=== PATIENT | male | born 1975 | race African-American/Black ===

== ENCOUNTER 2017-03-17 07:41 | Inpatient (IN) | payer OTHER ==
[2017-03-16 11:22] VITALS: Ht 195.6 cm; Wt 110.0 kg
[2017-03-17] VITALS (20 sets, daily range): BP systolic 108–137; BP diastolic 57–82; PULSE 64–86; RESP 16–26
[~2017-03-17] VITALS: Ht 195.6 cm; Wt 110.0 kg
[~2017-03-17 07:41] MED LIST: SUCCINYLCHOLINE CHLORIDE 100 MG/5 ML SYG IV ONE
[2017-03-17] MEDS ORDERED: CEFAZOLIN 2 GM/50 ML (PMX) 50 ML IVPB SCH (10:00)
[2017-03-17] MEDS ORDERED: LACTATED RINGER'S 1,000 ML IV* SCH (10:00)
[2017-03-17] MEDS ORDERED: MIDAZOLAM 1 MG/ML 2 ML INJ ONE (11:11)
[2017-03-17] MEDS ORDERED: CEFAZOLIN 1 GM INJ ONE (11:11)
[2017-03-17] MEDS ORDERED: ROCURONIUM 50 MG INJ ONE (11:11)
[2017-03-17] MEDS ORDERED: PROPOFOL 100 ML ONE (11:11)
--- NOTE | 2017-03-17 11:47 | HPN ---
Date/Time of Note Date/Time of Note DATE: 03/17/17 TIME: 11:47 Interval H&P Admission Note Pt. seen H&P reviewed: No system changes ESTEFANY LUTZ PA-C March 17, 2017 11:47
[2017-03-17] MEDS ORDERED: ACETAMINOPHEN 325 MG TAB PO PRN (12:00)
[2017-03-17] MEDS ORDERED: ZOLPIDEM 5 MG TAB PO PRN (12:00)
[2017-03-17] MEDS ORDERED: AL HYDROX/MG HYDROX/SIMETH 30 ML CUP PO PRN (12:00)
[2017-03-17] MEDS ORDERED: HYDROmorphONE 1 MG/ML SYG IV PRN (12:00)
[2017-03-17] MEDS ORDERED: CEPASTAT LOZENGE MT PRN (12:00)
[2017-03-17] MEDS ORDERED: CYCLOBENZAPRINE 10 MG TAB PO PRN (12:00)
[2017-03-17] MEDS ORDERED: NALOXONE (0.4 MG/ML) INJ IV PRN (12:00)
[2017-03-17] MEDS ORDERED: CEFAZOLIN 1 GM/50 ML (PMX) 50 ML IVPB SCH (12:00)
[2017-03-17] MEDS ORDERED: BISACODYL 10 MG SUPP PR PRN (12:00)
[2017-03-17] MEDS ORDERED: DIPHENHYDRAMINE 50 MG INJ IV PRN ×2 (12:00→14:30)
[2017-03-17] MEDS ORDERED: HYDROmorphONE 0.2 MG/ML PCA IV SCH (12:00)
[2017-03-17] MEDS ORDERED: THROMBIN 5000 UNIT VIAL ONE (12:24)
[2017-03-17] MEDS ORDERED: CA CHLORIDE 10% 10 ML SYRINGE ONE (12:24)
[2017-03-17] MEDS ORDERED: POLYMYXIN/BACITRACIN 1L IRRIG ONE (12:24)
[2017-03-17] MEDS ORDERED: SURGIFOAM POWDER 1 GM KIT ONE (12:24)
[2017-03-17] MEDS ORDERED: BUPIVACAINE 0.25%/EPI (SDV) 30 ML INJ ONE (12:24)
[2017-03-17] MEDS ORDERED: METOCLOPRAMIDE 10 MG INJ ONE (13:07)
[2017-03-17] MEDS ORDERED: FAMOTIDINE 20 MG INJ ONE (13:07)
[2017-03-17] MEDS ORDERED: ONDANSETRON 4 MG INJ ONE (13:07)
[2017-03-17] MEDS ORDERED: DEXAMETHASONE 4 MG/ML 1 ML INJ ONE (13:07)
[2017-03-17] MEDS ORDERED: ACETAMINOPHEN 1000MG/100ML IV 100 ML ONE (13:42)
--- NOTE | 2017-03-17 14:03 | RADRPT ---
PROCEDURE: Intraoperative XR. CLINICAL INDICATION: Intraoperative radiograph during L4-5 microdiskectomy. TECHNIQUE: Spot intraoperative lateral lumbar x-ray image was provided. The images were reviewed on a high-resolution PACS workstation. COMPARISON: None available FINDINGS: Spot intraoperative lateral lumbar view were provided during L4-5 microdiskectomy. The images demon strate metallic probes at the level of L4 and L5. IMPRESSION: 1. Spot intraoperative lateral lumbar view during L4-5 microdiskectomy were provided. 2. Please see operative report of the same day for further information. RPTAT: DD .Landon Hoff MD, Date Time Electronically viewed and signed by .Landon Hoff MD, on 03/17/2017 14:03 .S/
--- NOTE | 2017-03-17 14:04 | RADRPT ---
PROCEDURE: Intraoperative XR. CLINICAL INDICATION: Intraoperative radiograph during lumbar microdiskectomy.. TECHNIQUE: Spot intraoperative lateral lumbar x-ray image was provided. The images were reviewed on a high-resolution PACS workstation. COMPARISON: None available FINDINGS: Spot intraoperative lateral lumbar view were provided during lumbar microdiskectomy. The images dem onstrate the instrumentation at the level of L4-5. IMPRESSION: 1. Spot intraoperative lateral lumbar view during L4-5 microdiskectomy were provided. 2. Please see operative report of the same day for further information. RPTAT: DD .Landon Hoff MD, Date Time Electronically viewed and signed by .Landon Hoff MD, on 03/17/2017 14:03 .S/
[2017-03-17] MEDS ORDERED: FENTAnyl 50 MCG/ML VIAL ONE (14:09)
[2017-03-17] MEDS ORDERED: ONDANSETRON 4 MG INJ IV PRN (14:30)
[2017-03-17] MEDS ORDERED: LABETALOL HCL 20MG INJ IV PRN (14:30)
[2017-03-17] MEDS ORDERED: EPHEDrine SULFATE 50 MG/5 ML SYG IV PRN (14:30)
[2017-03-17] MEDS ORDERED: METOCLOPRAMIDE 10 MG INJ IV PRN (14:30)
[2017-03-17] MEDS ORDERED: FENTAnyl 50 MCG/ML VIAL IV PRN ×3 (14:30)
[2017-03-17] MEDS ORDERED: morphine (1 MG/ML) 10ML SYRINGE IV PRN ×3 (14:30)
[2017-03-17] MEDS ORDERED: MEPERIDINE 25 MG INJ IV PRN (14:30)
[2017-03-17] MEDS ORDERED: HYDROmorphONE (0.2 MG/ML) 10ML SYG IV PRN ×3 (14:30)
[2017-03-17] MEDS ORDERED: OXYCODONE/ACETAMINOPHEN (5/325) TAB PO PRN ×2 (14:30)
[2017-03-17] MEDS ORDERED: NEOSTIGMINE 3 MG/3 ML SYRINGE ONE (14:37)
[2017-03-17] MEDS ORDERED: GLYCOPYRROLATE 1 MG INJ ONE (14:37)
[2017-03-17] MEDS ORDERED: NALOXONE (0.4 MG/ML) INJ ONE (14:49)
--- NOTE | 2017-03-17 16:03 | OPR ---
DATE OF OPERATION: 03/17/2017 PREOPERATIVE DIAGNOSIS: Left L4 to L5 disk herniation with radiculopathy. POSTOPERATIVE DIAGNOSIS: Left L4 to L5 disk herniation with radiculopathy. PROCEDURE PERFORMED 1. Left L4 to L5 hemilaminotomy, partial medial facetectomy and foraminotomy. 2. Lateral localizing film x2. 3. Left L4 to L5 microdiskectomy. 4. Use of operative microscope. 5. Intraoperative neuromonitoring (1.5 hours). 6. Epidural injection via catheter. PRIMARY SURGEON: Toy Harris MD ILLUSIONIST: ROBEL Curry NEED FOR MOBILE HEAVY EQUIPMENT OPERATOR: During this spinal surgical procedure, my district administrative assistant was used to retrac t and protect the spinal nerves and dural sac. My district administrative assistant also employed the suction catheters to evacuate blood from the surgical field to improve visualization of the neural structures. The blu tant was medically necessary to facilitate the completion of the surgery in a safe and expeditious m fred. [facility] regulations, as well as hospital bylaws, preclude the use of non-license d health care personnel, such as operating room technicians, to perform these functions. FINDINGS: Neuromonitoring at the start of the case revealed left L4 amplitude down 50%, left L5 amp litude down 30%. At the end of the case, nerve signals returned to normal. The patient had disk he rniation at L4 to L5. ESTIMATED BLOOD LOSS: 40 mL. DRAINS: None. SPECIMENS: Disk. COMPLICATIONS OF PROCEDURES: None. ANESTHESIOLOGIST: Jorge L Myrick MD TYPE OF ANESTHESIA: General. INDICATIONS FOR PROCEDURE: A 41-year-old gentleman with left [facility]umbosac[facility] a disk herniation at L4 to L5. He had failed nonoperative measures, therefore, I recommended proceeding with the above-mentioned surgery. Preoperatively, we discussed the risks, benefits, and alternatives. He understood and wished to proceed. DESCRIPTION OF PROCEDURE IN DETAIL: The patient was identified in the preoperative holding area, [facility], taken to the operating room, where he was successfully placed under general an esthesia. Neuromonitoring leads were placed, sequential compressive devices were applied. Neuromon itoring was utilized during the procedure for 1.5 hours to include SSEP, MEP, and EMG. This was per formed by [employer]. Start time was 1:15 p.m., closure time was 2:45 p.m. The patient was p laced on the operating table in prone position over a Preston frame. All bony prominences were well padded. The back was then prepped and draped in the usual sterile fashion. Spinal needles were sandrine yordan. Lateral localizing film was obtained to confirm the correct levels. Next, I injected the para spinal musculature with 0.25% Marcaine and epinephrine. An incision was then made over the L4 to L5 level. Incision was taken down to the dorsal fascia, wh ich was incised with Bovie cautery. I then subperiosteally dissected the left L4 lamina. Rowena re tractor was placed. Kerrison was placed in what was felt to be the L4 lamina and repeat lateral aime ms obtained to confirm the correct levels. Once this was confirmed, microscope was brought in. Lef t-sided hemilaminotomy, partial medial facetectomy and foraminotomy were performed at the L4 to L5 l evel. Ligamentum flavum was then sharply dissected. My district administrative assistant then retracted the neural element s medially. I then made an annulotomy followed by limited microdiskectomy. Once this was done, all nerve signals returned to normal. I irrigated the wound. Hemostasis achieved with bipolar cautery and Surgifoam. Anesthesiologist dr alvarez peripheral blood, which was spun down using the Yoolink device. I took the platelet rich plasma and injected this into the disk space. I then passed an epidural catheter through which I injected 100 mcg of fentanyl. I then pulled the catheter. I then injected the platelet-poor plasma mixed w ith thrombin over the dura for hemostatic purposes. The retractors were removed. I closed the deep fascia with a #1 Vicryl stitch. I then closed subcutaneous tissues with a 2-0 Vicryl stitch. A 4- 0 Monocryl closure was then performed. Dermabond was then applied. The patient was then awakened f rom anesthesia and taken to the recovery room in stable condition. Lap, sponge and instruments coun ts were correct x2. There were no apparent complications during the procedure. The patient will be admitted to the [facility] for routine postoperative care to include pain c ontrol, neurovascular checks, antibiotics, and physical therapy. Dictated By: TOY LAURENT/OSCAR Conf#: [id number] [facility]#: [id number]
[2017-03-17] MEDS: D5W-0.45 NACL + KCL 20 MEQ 1,000 ML IV SCH ×2 (17:29→21:47)
[2017-03-17] MEDS: ONDANSETRON 4 MG INJ IV PRN (17:29)
--- NOTE | 2017-03-17 18:35 | CONS ---
DATE OF ADMISSION: 03/17/2017 DATE OF CONSULTATION: 03/17/2017 TYPE OF CONSULTATION: POSTOPERATIVE MEDICAL CONSULTATION Thank you very much for allowing me to evaluate this 41-year-old male who underwent lumbar back surg hermilo for an L4-L5 herniated nucleus pulposus pulse. HISTORICAL EVENTS: As you well know, this patient did suffer an injury to his low back. In y of this year he underwent an epidural injection and did achieve 1 day of relief with respect to le ft leg radicular pain. Because of persistence of the same, he elected to proceed with surgery. Pos toperatively, he is comfortable without cough, wheezing, shortness of breath, nausea, vomiting, abdo letha or chest pain. PAST MEDICAL HISTORY: Unrevealing for diabetes, hypertension, coronary artery disease. ALLERGIES: None. FAMILY HISTORY: To be reviewed later. 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 PHYSICAL EXAMINATION: GENERAL: [place] male in no acute distress. VITAL SIGNS: BP 122/80, pulse 70, respirations 20, he was afebrile. EYES: Extraocular muscles were full. NOSE, MOUTH, AND THROAT: Normal. NECK: Supple. There was no jugular venous distention, thyroid enlargement or adenopathy. Carotids 2+, no bruits. LUNGS: Clear. HEART: Rhythm was regular, no murmur. No third or fourth sound. ABDOMEN: Nontender. Liver and spleen were not palpable. No masses or tenderness were noted. EXTREMITIES: No edema. IMPRESSION: 1. Stable postop lumbar laminectomy. 2. Evaluate daily for signs and symptoms of thromboembolic disease. Dictated By: SULAIMAN TIM/OSCAR Conf#: [id number] DID#: [id number] CC: TYSHAWN RUIZ MD;*EndCC*
[2017-03-17] MEDS: DOCUSATE SODIUM 100 MG CAP PO SCH (21:35)
[2017-03-18 00:20] VITALS: BP 116/66; PULSE 65; RESP 18
[2017-03-18] MEDS: CEFAZOLIN 1 GM/50 ML (PMX) 50 ML IVPB SCH ×2 (00:21→09:14)
[2017-03-18] MEDS: D5W-0.45 NACL + KCL 20 MEQ 1,000 ML IV SCH ×2 (04:00→17:31)
[2017-03-18 05:13] LABS: ADD SCAN DIFF NO
[2017-03-18 05:20] VITALS: BP 102/58; PULSE 79; RESP 20
[2017-03-18 05:28] LABS: ABNORMAL IP MESSAGE 1; BASOPHILS % 0.1 % (0.0-2.0); HEMATOCRIT 42.1 % (42.0-52.0); HEMOGLOBIN 14.8 g/dl (14.0-18.0); LYMPHOCYTES # 0.8 10^3/ul (0.8-2.9); LYMPHOCYTES % 5.8 % (15.0-51.0); MEAN CORPUSCULAR HEMOGLOBIN 31.2 pg (29.0-33.0); MEAN CORPUSCULAR HGB CONC 35.2 g/dl (32.0-37.0); MEAN CORPUSCULAR VOLUME 88.6 fl (82.0-101.0); MEAN PLATELET VOLUME 13.2 fl (7.4-10.4); MONOCYTE # 0.7 10^3/ul (0.3-0.9); MONOCYTES % 5.2 % (0.0-11.0); NEUTROPHIL # 11.4 10^3/ul (1.6-7.5); NEUTROPHILS % 88.4 % (39.0-77.0); PLATELET COUNT 184 10^3/UL (140-415); RED BLOOD COUNT 4.75 10^6/ul (4.70-6.10); RED CELL DISTRIBUTION WIDTH 12.5 % (11.5-14.5); WHITE BLOOD COUNT 12.9 10^3/ul (4.8-10.8)
[2017-03-18 05:35] LABS: CALCIUM 9.3 mg/dl (8.4-10.2); CREATININE 0.96 mg/dl (0.61-1.24); MAGNESIUM 1.6 mg/dl (1.7-2.5); POTASSIUM 4.3 mmol/L (3.5-5.1)
[2017-03-18 08:06] VITALS: BP 123/62; RESP 18
[2017-03-18 08:09] VITALS: BP 123/62; RESP 17
--- NOTE | 2017-03-18 08:56 | CONS ---
Date/Time of Note Date/Time of Note DATE: 03/18/17 TIME: 08:54 Assessment/Plan Assessment/Plan Additional Assessment/Plan 1. Doing well post op laminectomy 2. Low mag, will replete Consultation Date/Type/Reason Admit Date/Time March 17, 2017 at 14:57 Initial Consult Date Detailed Summary Respiratory: No shortness of breath Cardiovascular: No chest pain Gastrointestinal: no complaints Genitourinary: no complaints Musculoskeletal: back pain (mod pain) Exam/Review of Systems Vital Signs Vitals Vital Signs Date Time Temp Pulse Resp B/P Pulse Ox O2 Delivery O2 Flow Rate FiO2 03/18/17 08:09 99.1 77 17 123/62 99 03/18/17 05:20 Room Air 03/17/17 15:29 2.0 Intake and Output 03/17/17 03/17/17 03/18/17 15:00 23:00 07:00 Intake Total 1600 ml 170 ml 1800 ml Output Total 40 ml 1850 ml Balance 1560 ml 170 ml -50 ml Exam Neck: No jvd Respiratory: clear to auscultation Cardiovascular: regular rate and rhythm Gastrointestinal: soft Extremities: No edema (and no calf tend) Results Result Diagram: 03/18/17 0419 03/18/17 0419 Results 24 hrs Laboratory Tests Test 03/18/17 04:19 White Blood Count 12.9 H Red Blood Count 4.75 Hemoglobin 14.8 Hematocrit 42.1 Mean Corpuscular Volume 88.6 Mean Corpuscular Hemoglobin 31.2 Mean Corpuscular Hemoglobin Concent 35.2 Red Cell Distribution Width 12.5 Platelet Count 184 Mean Platelet Volume 13.2 H Neutrophils % 88.4 H Lymphocytes % 5.8 L Monocytes % 5.2 Eosinophils % 0.0 Basophils % 0.1 Nucleated Red Blood Cells % 0.0 Neutrophils # 11.4 H Lymphocytes # 0.8 Monocytes # 0.7 Eosinophils # 0.0 Basophils # 0.0 Nucleated Red Blood Cells # 0.0 Sodium Level 137 Potassium Level 4.3 Chloride Level 105 Carbon Dioxide Level 25 Anion Gap 11 Blood Urea Nitrogen 11 Creatinine 0.96 Glucose Level 149 Calcium Level 9.3 Magnesium Level 1.6 L Medications Medications Current Medications Potassium Chloride/Dextrose/ Sod Cl (D5-1/2ns + KCl 20 Meq) 1,000 ml @ 100 mls/ hr Q10H IV Last administered on 03/18/17 04:00; Admin Dose 100 MLS/HR; Start at 11:47 Acetaminophen/ Hydrocodone Bitart ([place] (10/325)) 1 tab Q4H PRN PO PAIN LEVEL 1-5; Start 03/18/17 at 09:30 Acetaminophen/ Hydrocodone Bitart ([place] (10/325)) 2 tab Q4H PRN PO PAIN LEVEL 6-10; Start 03/18/17 at 09:30 Hydromorphone HCl (Dilaudid) 0.2 mg Q1H PRN IV BREAKTHROUGH PAIN; Start at 12:00 Ondansetron HCl (Zofran Inj) 4 mg Q6H PRN IV NAUSEA AND/OR VOMITING Last administered on 03/17/17 17:29; Admin Dose 4 MG; Start 03/17/17 at 12:00 Bisacodyl (Dulcolax Supp) 10 mg DAILY PRN MA CONSTIPATION; Start 03/17/17 at 12: 00 Docusate Sodium (Colace) 100 mg BID PO Last administered on 03/17/17 21:35; Admin Dose 100 MG; Start 03/17/17 at 21:00 Al Hydrox/Mg Hydrox/Simethicone (Mag-Al Plus) 15 ml Q6H PRN PO CONSTIPATION/ DYSPEPSIA; Start 03/17/17 at 12:00 Acetaminophen (Tylenol Tab) 650 mg Q4H PRN PO IGLESIAS OR TEMP GREATER THAN 101.3F; Start 03/17/17 at 12:00 Cyclobenzaprine HCl (Flexeril) 10 mg TID PRN PO MUSCLE SPASMS; Start 03/17/17 at 12:00 Phenol (Cepastat Lozenge) 1 lozenge PRN PRN MT SORE THROAT; Start 03/17/17 at 12 :00 Diphenhydramine HCl (Benadryl) 25 mg Q6H PRN IV ITCHING; Start 03/17/17 at 12:00 Naloxone HCl (Narcan) 0.2 mg Q2M PRN IV RR 8 BREATHS/MIN OR LESS; Start at 12:00 Hydromorphone HCl (Dilaudid FARM EQUIPMENT ASSEMBLER) FARM EQUIPMENT ASSEMBLER to be started in PACU Q4PCA IV Last administered on 03/17/17 15:09; Admin Dose 6 MG; Start 03/17/17 at 12:00; Stop at 10:00 Miscellaneous Information 1. Hold FARM EQUIPMENT ASSEMBLER at 1,000... FARM EQUIPMENT ASSEMBLER IV ; Start 03/17/17 at 12: 00 Cefazolin Sodium (Ancef 1 Gm/50 ml (Pmx)) 50 ml @ 100 mls/hr Q8H IVPB Last administered on 03/18/17t 00:21; Admin Dose 100 MLS/HR; Start 03/18/17 at 01:00; Stop 03/18/17 at 09:29 SULAIMAN BERMUDEZ MD March 18, 2017 08:56
[2017-03-18] MEDS: DOCUSATE SODIUM 100 MG CAP PO SCH ×2 (09:14→20:41)
[2017-03-18] MEDS: HYDROCODONE/APAP (10/325) TAB PO PRN ×2 (09:15→13:36)
[2017-03-18] MEDS ORDERED: HYDROCODONE/APAP (10/325) TAB PO PRN (09:30)
[2017-03-18] MEDS ORDERED: MAGNESIUM SULFATE 3 GM in SOD CHLORIDE 0.9% 100 ML IVPB SCH (10:30)
--- NOTE | 2017-03-18 10:57 | DS ---
DATE OF ADMISSION: 03/17/2017 DATE OF DISCHARGE: 03/18/2017 ADMITTING DIAGNOSIS: Disk herniation. DISCHARGE DIAGNOSIS: Disk herniation. PROCEDURE: Patient taken to the operating room on March 17 and underwent lumbar diskectomy. HOSPITAL COURSE: The patient was admitted to the [facility] after undergoing the above procedu re. His postoperative course was uncomplicated. By postoperative day 1, he was deemed stable for d ischarge. Followup arranged with the undersigned. Dictated By: TYSHAWN LAURENT/OSCAR Conf#: [id number] DID#: [id number]
[2017-03-18] MEDS: ONDANSETRON 4 MG INJ IV PRN (11:10)
--- NOTE | 2017-03-18 19:58 | RADRPT ---
Vent Rate: 65 bpm RR Interval: 0 msec OH Interval: 144 msec QRS Duration: 98 msec QT Interval: 418 msec QTC Interval: 434 msec P-R-T [place]: 158 - 96 - 137 degrees Suspect arm lead reversal, interpretation assumes no reversal Unusual P axis, possible ectopic atrial rhythm Rightward axis Nonspecific ST abnormality Abnormal ECG Electronically Signed By: Kiko Young [id number]
[2017-03-18 20:07] VITALS: BP 118/65; RESP 20
[2017-03-19] MEDS: D5W-0.45 NACL + KCL 20 MEQ 1,000 ML IV SCH ×2 (03:47→13:47)
[2017-03-19 04:54] LABS: ADD SCAN DIFF NO
[2017-03-19 05:00] LABS: BASOPHILS % 0.3 % (0.0-2.0); EOSINOPHILS % 0.2 % (0.0-7.0); HEMATOCRIT 40.1 % (42.0-52.0); HEMOGLOBIN 13.6 g/dl (14.0-18.0); LYMPHOCYTES # 2.2 10^3/ul (0.8-2.9); LYMPHOCYTES % 21.7 % (15.0-51.0); MEAN CORPUSCULAR HEMOGLOBIN 30.8 pg (29.0-33.0); MEAN CORPUSCULAR HGB CONC 33.9 g/dl (32.0-37.0); MEAN CORPUSCULAR VOLUME 90.9 fl (82.0-101.0); MEAN PLATELET VOLUME 12.9 fl (7.4-10.4); MONOCYTE # 0.8 10^3/ul (0.3-0.9); MONOCYTES % 8.1 % (0.0-11.0); NEUTROPHIL # 7.2 10^3/ul (1.6-7.5); NEUTROPHILS % 69.3 % (39.0-77.0); PLATELET COUNT 161 10^3/UL (140-415); RED BLOOD COUNT 4.41 10^6/ul (4.70-6.10); RED CELL DISTRIBUTION WIDTH 12.8 % (11.5-14.5); WHITE BLOOD COUNT 10.3 10^3/ul (4.8-10.8)
[2017-03-19 05:33] LABS: CREATININE 1.2 mg/dl (0.61-1.24); PHOSPHORUS 2.9 mg/dl (2.5-4.9)
[2017-03-19 07:32] VITALS: BP 126/68; RESP 20
[2017-03-19] MEDS: HYDROCODONE/APAP (10/325) TAB PO PRN ×2 (08:33→13:04)
[2017-03-19] MEDS: DOCUSATE SODIUM 100 MG CAP PO SCH (08:33)
--- NOTE | 2017-03-19 11:56 | CONS ---
Date/Time of Note Date/Time of Note DATE: 03/19/17 TIME: 11:54 Assessment/Plan Assessment/Plan Additional Assessment/Plan 1. Doing well post op lumbar laminectomy 2. Diff voiding, will check post void residual 3. Labs rev 4. Can dc if ok with otho and pt and post void residual is acceptable Consultation Date/Type/Reason Admit Date/Time March 17, 2017 at 14:57 Detailed Summary Respiratory: No cough, No shortness of breath Cardiovascular: No chest pain Gastrointestinal: no complaints Genitourinary: other (? diff voiding without hematuria or dysuria) Musculoskeletal: back pain (mild) Exam/Review of Systems Vital Signs Vitals Vital Signs Date Time Temp Pulse Resp B/P Pulse Ox O2 Delivery O2 Flow Rate FiO2 03/19/17 08:37 98.7 03/19/17 07:32 77 20 126/68 96 03/18/17 05:20 Room Air 03/17/17 15:29 2.0 Intake and Output 03/18/17 03/18/17 03/19/17 15:00 23:00 07:00 Intake Total 556 ml 1040 ml 550 ml Output Total 1800 ml 1100 ml Balance 556 ml -760 ml -550 ml Exam Neck: No jvd Respiratory: clear to auscultation Cardiovascular: regular rate and rhythm Extremities: No edema (and no calf tend) Results Result Diagram: 03/19/17 0418 03/19/17 0418 Results 24 hrs Laboratory Tests Test 03/19/17 04:18 White Blood Count 10.3 # Red Blood Count 4.41 L Hemoglobin 13.6 L Hematocrit 40.1 L Mean Corpuscular Volume 90.9 Mean Corpuscular Hemoglobin 30.8 Mean Corpuscular Hemoglobin Concent 33.9 Red Cell Distribution Width 12.8 Platelet Count 161 Mean Platelet Volume 12.9 H Neutrophils % 69.3 Lymphocytes % 21.7 Monocytes % 8.1 Eosinophils % 0.2 Basophils % 0.3 Nucleated Red Blood Cells % 0.0 Neutrophils # 7.2 Lymphocytes # 2.2 Monocytes # 0.8 Eosinophils # 0.0 Basophils # 0.0 Nucleated Red Blood Cells # 0.0 Sodium Level 138 Potassium Level 4.0 Chloride Level 102 Carbon Dioxide Level 32 H Anion Gap 8 Blood Urea Nitrogen 14 Creatinine 1.20 Glucose Level 114 Calcium Level 9.0 Phosphorus Level 2.9 Magnesium Level 2.0 Medications Medications Current Medications Potassium Chloride/Dextrose/ Sod Cl (D5-1/2ns + KCl 20 Meq) 1,000 ml @ 100 mls/ hr Q10H IV Last administered on 03/18/17 04:00; Admin Dose 100 MLS/HR; Start at 11:47 Acetaminophen/ Hydrocodone Bitart ([place] (10/325)) 1 tab Q4H PRN PO PAIN LEVEL 1-5; Start 03/18/17 at 09:30 Acetaminophen/ Hydrocodone Bitart ([place] (10/325)) 2 tab Q4H PRN PO PAIN LEVEL 6-10 Last administered on 03/19/17 08:33; Admin Dose 2 TAB; Start 03/18/17 at 09: 30 Hydromorphone HCl (Dilaudid) 0.2 mg Q1H PRN IV BREAKTHROUGH PAIN; Start at 12:00 Ondansetron HCl (Zofran Inj) 4 mg Q6H PRN IV NAUSEA AND/OR VOMITING Last administered on 03/18/17 11:10; Admin Dose 4 MG; Start 03/17/17 at 12:00 Bisacodyl (Dulcolax Supp) 10 mg DAILY PRN MA CONSTIPATION; Start 03/17/17 at 12: 00 Docusate Sodium (Colace) 100 mg BID PO Last administered on 03/19/17 08:33; Admin Dose 100 MG; Start 03/17/17 at 21:00 Al Hydrox/Mg Hydrox/Simethicone (Mag-Al Plus) 15 ml Q6H PRN PO CONSTIPATION/ DYSPEPSIA Last administered on 03/19/17 05:23; Admin Dose 15 ML; Start 03/17/17 at 12:00 Acetaminophen (Tylenol Tab) 650 mg Q4H PRN PO IGLESIAS OR TEMP GREATER THAN 101.3F; Start 03/17/17 at 12:00 Cyclobenzaprine HCl (Flexeril) 10 mg TID PRN PO MUSCLE SPASMS; Start 03/17/17 at 12:00 Phenol (Cepastat Lozenge) 1 lozenge PRN PRN MT SORE THROAT; Start 03/17/17 at 12 :00 Diphenhydramine HCl (Benadryl) 25 mg Q6H PRN IV ITCHING; Start 03/17/17 at 12:00 Naloxone HCl (Narcan) 0.2 mg Q2M PRN IV RR 8 BREATHS/MIN OR LESS; Start at 12:00 Miscellaneous Information 1. Hold ASSISTANT DIRECTOR at 1,000... ASSISTANT DIRECTOR IV ; Start 03/17/17 at 12: 00 SULAIMAN BERMUDEZ MD March 19, 2017 11:56
== END 2017-03-19 16:35 | disposition home or self-care (01) | DRG 520 ==
LOC: INTOOBSV 07:41 → REC 07:41 → EDSTATUS 13:00 → OBSVTOIN 14:57 → MS1 17:15
PROVIDERS: ADMIT Specialist; ATTEND Specialist
PROC: 4A11X4G Monitoring of Peripheral Nervous Electrical Activity, Intraoperative, External Approach (ICD-10-PCS; 2017-03-17)
PROC: 0ST20ZZ Resection of Lumbar Vertebral Disc, Open Approach (ICD-10-PCS; principal; 2017-03-17 13:00)
DX: M51.16 Intervertebral disc disorders with radiculopathy, lumbar region (principal); E83.42 Hypomagnesemia
CPT/HCPCS: 72020; 80048; 83735; 84100; 85025; 86999; 93005; 97116; 97162; 97530; 99217; G0378; J0131; J0330; J0690; J1100; J1170; J2250; J2310; J2405; J2710; J2765; J3010; J3475; J3480